=== PATIENT | female | born 1990 | race Caucasian/White ===

== ENCOUNTER 2024-03-12 11:45 | Inpatient (IN) | payer OTHER ==
[~2024-03-12] VITALS: Ht 170.2 cm; Wt 87.0 kg
[2024-03-12] MEDS ORDERED: 0.9% SODIUM CHLORIDE 10 ML SYRINGE IVP PRN (14:15)
[2024-03-12 14:46] LABS: BASOPHILS % (AUTO) 0.4 % (0.0-2.0); EOSINOPHILS % (AUTO) 0 % (1.0-6.0); HEMATOCRIT 35.9 % (36-46); HEMOGLOBIN 11.3 g/dL (12.0-16.0); LYMPHOCYTES # (AUTO) 1.5 K/uL (1.0-4.8); LYMPHOCYTES % (AUTO) 15.9 % (22.0-44.0); MEAN CORPUSCULAR HEMOGLOBIN 21.6 pg (26.0-34.0); MEAN CORPUSCULAR HGB CONC 31.5 G/dL (31.0-37.0); MEAN CORPUSCULAR VOLUME 69 fL (80-100); MONOCYTES # (AUTO) 1.4 K/uL (0.1-1.0); MONOCYTES % (AUTO) 15.8 % (2.0-9.0); NEUTROPHILS # (AUTO) 6.2 K/uL (1.8-7.7); NEUTROPHILS % (AUTO) 67.9 % (40.0-70.0); PLATELET COUNT (AUTO) 360 K/uL (150-450); RED BLOOD CELL COUNT(AUTO) 5.24 MIL/uL (4.00-5.20); RED CELL DISTRIBUTION WIDTH 18.7 % (11.5-14.5); WHITE BLOOD COUNT (AUTO) 9.2 K/uL (4.5-11.0)
[2024-03-12] MEDS: FUROSEMIDE 20 MG/2 ML VIAL IVP ONE (14:50)
[2024-03-12] MEDS: ACETAMINOPHEN 500 MG TABLET PO ONE (14:50)
[2024-03-12 14:57] LABS: ANION GAP 8 mmol/L (8-16); CALCIUM, TOTAL 8.7 mg/dL (8.8-10.5); CARBON DIOXIDE 28 mmol/L (22-29); CHLORIDE 102 mmol/L (98-107); CREATININE 0.89 mg/dL (0.60-1.30); GLOMERULAR FILTR. RATE CALC > 60 mL/min (>60); GLUCOSE,RANDOM 93 mg/dL (70-110); POTASSIUM 4.1 mmol/L (3.5-5.1); SODIUM SERUM 138 mmol/L (136-145); UREA NITROGEN, BLOOD 11 mg/dL (7-18)
[2024-03-12 15:04] LABS: LACTIC ACID 1.8 mmol/L (0.4-2.0)
[2024-03-12 15:05] LABS: TROPONIN I-HIGH SENSITIVITY 4 ng/L (<51)
[2024-03-12 15:12] LABS: CREATINE KINASE, TOTAL ONLY 55 U/L (26-192); HCG,QUANTITATIVE < 1 mIU/mL (0-6)
[2024-03-12 15:36] LABS: B-TYPE NATRIURETIC PEPTIDE 5 pg/mL (0-100)
[2024-03-12 15:38] LABS: RBC MORPHOLOGY COMMENT ABNORMAL RBC MORPH
[2024-03-12] MEDS ORDERED: TRAZ-184 PO (15:42)
[2024-03-12 15:50] LABS: APPEARANCE,URINE HAZY (CLEAR); BILIRUBIN,URINE NEGATIVE (NEGATIVE); COLOR,URINE YELLOW (YELLOW); GLUCOSE, URINE (UA) NEGATIVE (NEGATIVE); KETONES,URINE NEGATIVE (NEGATIVE); LEUKOCYTE ESTERASE ,URINE MODERATE (NEGATIVE); NITRATE,URINE NEGATIVE (NEGATIVE); OCCULT BLOOD,URINE NEGATIVE (NEGATIVE); PROTEIN,URINE TRACE mg/dL (NEGATIVE); SPECIFIC GRAVITIY, URINE 1.021 (1.003-1.030); UROBILINOGEN,URINE <=1.0 mg/dL (<=1.0)
[2024-03-12 15:58] LABS: AMPHET/METH SCREEN,URINE NEGATIVE (NEGATIVE); BARBITURATE SCREEN, URINE NEGATIVE (NEGATIVE); BENZODIAZEPINES SCREEN,URINE NEGATIVE (NEGATIVE); CANNABINOID SCREEN,URINE NEGATIVE (NEGATIVE); COCAINE SCREEN,URINE NEGATIVE (NEGATIVE); METHADONE SCREEN, URINE NEGATIVE (NEGATIVE); OPIATE SCREEN,URINE NEGATIVE (NEGATIVE); PHENCYCLIDINE SCREEN,URINE NEGATIVE (NEGATIVE)
[2024-03-12 16:00] LABS: ALCOHOL, URINE DRUG SCREEN NEGATIVE (NEGATIVE)
[2024-03-12 16:23] LABS: COVID AG,FIA SOURCE NASAL SWAB
[2024-03-12 16:36] LABS: BACTERIA,URINE Many /HPF (None Seen); SQUAMOUS EPITHELIAL CELL,UR Moderate /LPF (None Seen)
[2024-03-12 16:43] LABS: SARS-COV2 (COVID) ANTIGEN,FIA Negative (Negative)
[2024-03-12 16:44] LABS: INFLUENZA TYPE A NEGATIVE FOR TYPE A (NEGATIVE); INFLUENZA TYPE B POSITIVE FOR TYPE B (NEGATIVE)
[2024-03-12] MEDS ORDERED: MAGNESIUM HYDROXIDE SUSPENSION 30 ML UDCUP PO PRN (17:45)
[2024-03-12] MEDS ORDERED: ONDANSETRON HCL 4 MG/2 ML VIAL IVP PRN (17:45)
[2024-03-12] MEDS ORDERED: ALBUTEROL SULFATE 2.5 MG/0.5 ML NEB SOLUTION NEB PRN (17:45)
[2024-03-12] MEDS ORDERED: IPRATROPIUM BROMIDE 0.5 MG/2.5 ML NEB SOLUTION NEB PRN (17:45)
[2024-03-12] MEDS ORDERED: BISACODYL 10 MG RECTAL RECTAL SUPPOSITORY PR PRN (17:45)
[2024-03-12 20:45] VITALS: BP 113/78; PULSE 97; RESP 18; TEMP 98.5; O2SAT 99
[2024-03-12] MEDS: DOCUSATE SODIUM 100 MG CAPSULE PO SCH (21:00)
[2024-03-12] MEDS: ZOLPIDEM TARTRATE 5 MG TABLET PO PRN (21:37)
[2024-03-12] MEDS: OSELTAMIVIR PHOSPHATE 75 MG CAPSULE PO SCH (22:01)
[2024-03-12] MEDS: HEPARIN SODIUM,PORCINE 5,000 UNITS/ML VIAL SQ SCH (23:54)
[2024-03-13 00:42] VITALS: BP 129/84; PULSE 101; RESP 19; TEMP 100.1; O2SAT 99
[2024-03-13 04:00] VITALS: BP 131/84; PULSE 110; RESP 18; TEMP 99.9; O2SAT 93
[2024-03-13 08:16] VITALS: BP 121/82; PULSE 116; RESP 18; TEMP 99.1; O2SAT 96
[2024-03-13] MEDS: PANTOPRAZOLE SODIUM 40 MG/VIAL IVP SCH (09:34)
[2024-03-13] MEDS: FUROSEMIDE 40 MG/4 ML VIAL IVP SCH (09:34)
[2024-03-13] MEDS: ACETAMINOPHEN 325 MG TABLET PO PRN (15:19)
[2024-03-13 16:22] VITALS: BP 112/80; PULSE 109; RESP 18; TEMP 99.6; O2SAT 93
[2024-03-13 20:00] VITALS: BP 117/83; PULSE 101; RESP 19; TEMP 98.6; O2SAT 93
[2024-03-13] MEDS: GuaiFENesin [SUGAR-FREE] 200 MG/10 ML SOLUTION UDCUP PO PRN (21:26)
[2024-03-13] MEDS: CEPHALEXIN MONOHYDRATE 500 MG CAPSULE PO SCH (21:26)
[2024-03-14] VITALS (7 sets, daily range): BP systolic 104–121; BP diastolic 60–87; PULSE 84–115; RESP 17–19; TEMP 98.3–99.9; O2SAT 0–97
[2024-03-14 14:32] LABS: BASOPHILS % (AUTO) 0.4 % (0.0-2.0); EOSINOPHILS % (AUTO) 0.1 % (1.0-6.0); HEMATOCRIT 40.6 % (36-46); HEMOGLOBIN 12.7 g/dL (12.0-16.0); LYMPHOCYTES # (AUTO) 1.5 K/uL (1.0-4.8); LYMPHOCYTES % (AUTO) 28.7 % (22.0-44.0); MEAN CORPUSCULAR HEMOGLOBIN 21.3 pg (26.0-34.0); MEAN CORPUSCULAR HGB CONC 31.2 G/dL (31.0-37.0); MEAN CORPUSCULAR VOLUME 68 fL (80-100); MONOCYTES # (AUTO) 0.9 K/uL (0.1-1.0); MONOCYTES % (AUTO) 17.1 % (2.0-9.0); NEUTROPHILS # (AUTO) 2.8 K/uL (1.8-7.7); NEUTROPHILS % (AUTO) 53.7 % (40.0-70.0); PLATELET COUNT (AUTO) 342 K/uL (150-450); RED BLOOD CELL COUNT(AUTO) 5.94 MIL/uL (4.00-5.20); WHITE BLOOD COUNT (AUTO) 5.3 K/uL (4.5-11.0)
[2024-03-14 14:36] LABS: ANION GAP 13 mmol/L (8-16); CALCIUM, TOTAL 8.4 mg/dL (8.8-10.5); CARBON DIOXIDE 25 mmol/L (22-29); CHLORIDE 100 mmol/L (98-107); CREATININE 0.86 mg/dL (0.60-1.30); GLOMERULAR FILTR. RATE CALC > 60 mL/min (>60); GLUCOSE,RANDOM 99 mg/dL (70-110); POTASSIUM 4.2 mmol/L (3.5-5.1); SODIUM SERUM 138 mmol/L (136-145); UREA NITROGEN, BLOOD 17 mg/dL (7-18)
[2024-03-14 14:42] LABS: ALANINE AMINOTRANSFERASE 29 U/L (12-78); ALBUMIN 3.4 g/dL (3.4-5.0); ALKALINE PHOSPHATASE 76 U/L (46-116); ASPARTATE AMINOTRANSFERASE 19 U/L (15-37); BILIRUBIN,TOTAL 0.1 mg/dL (0.1-1.0); TOTAL PROTEIN, SERUM 7.5 g/dL (6.4-8.2)
[2024-03-14 14:55] LABS: RBC MORPHOLOGY COMMENT ABNORMAL RBC MORPH
[2024-03-15 00:30] VITALS: BP 114/72; PULSE 97; RESP 18; TEMP 98.7; O2SAT 97
[2024-03-15 04:00] VITALS: BP 110/72; PULSE 93; RESP 18; TEMP 97.8; O2SAT 96
[2024-03-15 07:49] VITALS: BP 115/76; PULSE 93; RESP 17; TEMP 98.2; O2SAT 95
[2024-03-15 08:42] VITALS: PULSE 0; TEMP 98.2
[2024-03-15 12:43] VITALS: BP 118/77; PULSE 0; RESP 16; TEMP 98.3; O2SAT 95
[2024-03-15] MEDS ORDERED: TRAZ-252 PO (15:40)
[2024-03-15] MEDS ORDERED: OSEL75CA17 PO (15:41)
[2024-03-15] MEDS ORDERED: GUAI100L96 PO (15:44)
[2024-03-15 16:10] VITALS: BP 117/80; PULSE 0; RESP 15; TEMP 98.3; O2SAT 95
== END 2024-03-15 20:20 | DRG 292 ==
LOC: EMS 11:45 → EDH 16:59 → 5N 20:45
PROVIDERS: ADMIT Hospitalist; ATTEND Hospitalist
DX: I11.0 Hypertensive heart disease with heart failure (principal); R65.10 Systemic inflammatory response syndrome (SIRS) of non-infectious origin without acute organ dysfunction; I50.9 Heart failure, unspecified; Z20.822 Contact with and (suspected) exposure to COVID-19; J11.1 Influenza due to unidentified influenza virus with other respiratory manifestations; I42.9 Cardiomyopathy, unspecified; Z91.148 Patient's other noncompliance with medication regimen for other reason; Z91.013 Allergy to seafood
CPT/HCPCS: 71045; 80048; 80053; 80307; 81001; 82550; 83605; 83880; 84145; 84484; 84702; 85025; 87040; 87086; 87804; 93005; 93306; 99285; G0480; J1644; J1940; J2470; 36415-L1; 36415-TC; J7613